=== PATIENT | female | born 1990 | race African-American/Black ===

== ENCOUNTER 2018-03-11 13:54 | Emergency (ER) | payer MEDICAID, OTHER ==
[~2018-03-11] VITALS: Ht 154.9 cm; Wt 148.3 kg
[2018-03-11 14:35] VITALS: BP 156/96
== END 2018-03-11 16:03 | disposition home or self-care (01) ==
LOC: ER 13:54
DX: S01.531A Puncture wound without foreign body of lip, initial encounter (principal); W20.8XXA Other cause of strike by thrown, projected or falling object, initial encounter; Y99.8 Other external cause status; Y93.89 Activity, other specified; Y92.89 Other specified places as the place of occurrence of the external cause
CPT/HCPCS: 70450

== ENCOUNTER 2018-07-19 11:14 | Emergency (ER) | payer MEDICAID ==
[~2018-07-19] VITALS: Ht 154.9 cm; Wt 147.2 kg
[2018-07-19 14:28] VITALS: BP 152/99
== END 2018-07-19 14:37 | disposition home or self-care (01) ==
LOC: ER 11:14
DX: J32.9 Chronic sinusitis, unspecified (principal); Z76.0 Encounter for issue of repeat prescription; Z88.1 Allergy status to other antibiotic agents